=== PATIENT | female | born 1940 | race Caucasian/White ===

== ENCOUNTER 2016-09-02 10:30 | Observation (INO) | payer MEDICARE, MEDICAID ==
[~2016-09-02] VITALS: Ht 160 cm; Wt 58.2 kg
[2016-09-02] MEDS ORDERED: SODIUM CHLORIDE 0.9% 1,000 ML IV SCH (13:10)
[2016-09-02 13:38] VITALS: BP 171/84
[2016-09-02] MEDS ORDERED: PLEASE ENTER HEIGHT AND WEIGHT MC SCH (14:00)
[2016-09-02] MEDS ORDERED: POTA10TA90 PO (14:19)
[2016-09-02] MEDS ORDERED: ATOR10TA9 PO (14:19)
[2016-09-02] MEDS ORDERED: CITA20TA5 PO (14:19)
[2016-09-02] MEDS ORDERED: OMEP-110 PO (14:19)
[2016-09-02] MEDS ORDERED: ENAL5TAB PO (14:19)
[2016-09-02] MEDS ORDERED: METF500T4 PO (14:19)
[2016-09-02] MEDS ORDERED: ASPI-621 PO (14:19)
[2016-09-02] MEDS ORDERED: APIX5TAB PO (14:19)
[2016-09-02 14:27] LABS: BLOOD UREA NITROGEN 23 mg/dL (7-18)
[2016-09-02] MEDS ORDERED: CEFAZOLIN 1,000 MG ONE (14:56)
[2016-09-02] MEDS ORDERED: MIDAZOLAM 1 MG/ML, 5ML ONE (14:56)
[2016-09-02] MEDS ORDERED: LIDOCAINE 2%, 20ML ONE (14:56)
[2016-09-02] MEDS ORDERED: FENTANYL PF 100 MCG/2ML ONE (14:56)
[2016-09-02] MEDS ORDERED: CEFAZOLIN PMX 1GM/50ML 50 ML ONE (14:56)
[2016-09-02] MEDS ORDERED: CEFAZOLIN PMX 1GM/50ML 50 ML IVPB ONE (15:00)
[2016-09-02] MEDS ORDERED: ZOLPIDEM 5MG TABLET PO PRN (16:30)
[2016-09-02] MEDS ORDERED: ACETAMINOPHEN 325 MG TABLET PO PRN (16:30)
[2016-09-02] MEDS: metFORMIN 500 MG TABLET PO SCH (20:13)
[2016-09-02 20:39] VITALS: BP 120/70
[2016-09-02] MEDS: CEFAZOLIN PMX 1GM/50ML 50 ML IVPB SCH (20:53)
[2016-09-02] MEDS: SODIUM CHLORIDE FLUSH 10ML SYR IVF SCH (20:54)
[2016-09-02] MEDS: APIXABAN 5 MG TABLET PO SCH (20:54)
[2016-09-02] MEDS ORDERED: ATORVASTATIN 10 MG TABLET PO SCH (21:00)
[2016-09-03 01:35] VITALS: BP 148/88
[2016-09-03 07:36] VITALS: BP 155/76
[2016-09-03] MEDS: metFORMIN 500 MG TABLET PO SCH (08:44)
[2016-09-03] MEDS: APIXABAN 5 MG TABLET PO SCH (08:44)
[2016-09-03] MEDS: CEFAZOLIN PMX 1GM/50ML 50 ML IVPB SCH (08:44)
[2016-09-03] MEDS: SODIUM CHLORIDE FLUSH 10ML SYR IVF SCH (08:45)
[2016-09-03] MEDS ORDERED: ENALAPRIL 5MG TABLET PO SCH (09:00)
[2016-09-03] MEDS ORDERED: ASPIRIN 81 MG TABLET EC PO SCH (09:00)
[2016-09-03] MEDS ORDERED: POTASSIUM CHLORIDE 10 MEQ TABLET.ER PO SCH (09:00)
[2016-09-03] MEDS ORDERED: OMEPRAZOLE 20 MG CAPSULE.DR PO SCH (09:00)
[2016-09-03] MEDS ORDERED: CITALOPRAM 20 MG TABLET PO SCH (09:00)
== END 2016-09-03 11:29 | disposition home or self-care (01) ==
LOC: CACL 10:30 → ORIP 16:27 → 5SO 16:56
PROVIDERS: ADMIT Internal Medicine Cardiovascular Disease; ATTEND Internal Medicine Cardiovascular Disease
DX: I49.5 Sick sinus syndrome (principal); I44.1 Atrioventricular block, second degree; I48.91 Unspecified atrial fibrillation; R42 Dizziness and giddiness; R53.83 Other fatigue; E78.5 Hyperlipidemia, unspecified; I10 Essential (primary) hypertension; Z98.61 Coronary angioplasty status; E11.9 Type 2 diabetes mellitus without complications
CPT/HCPCS: 33208; 36415; 71010; 80048; 82962; 85025; 85610; 93005; 96365; 96375; 99156; 99157; C1779; C1785; C1892; G0378; J0690; J2250; J3010; J3490

== ENCOUNTER → 2016-11-10 | Outpatient (CLI) | payer MEDICARE, MEDICAID ==
[~2016-11-10] MED LIST: APIX5TAB PO; ASPI-621 PO; ATOR10TA9 PO; CITA20TA5 PO; ENAL5TAB PO; METF500T4 PO; OMEP-110 PO; POTA10TA6 PO
== END | disposition home or self-care (01) ==
LOC: CFH 11:35
PROVIDERS: ATTEND Internal Medicine
DX: J47.9 Bronchiectasis, uncomplicated (principal); R91.1 Solitary pulmonary nodule; I51.7 Cardiomegaly; K86.9 Disease of pancreas, unspecified; I25.10 Atherosclerotic heart disease of native coronary artery without angina pectoris; Z95.0 Presence of cardiac pacemaker
CPT/HCPCS: 71250

== ENCOUNTER → 2017-08-02 | Outpatient (CLI) | payer MEDICARE, MEDICAID ==
[2017-08-02 16:11] LABS: ALBUMIN 3.9 g/dL (3.4-5.0)
[2017-08-02 16:16] LABS: BILIRUBIN, DIRECT 0.2 mg/dL (0.1-0.2); BILIRUBIN,INDIRECT 0.6 mg/dL (0.0-2.0); BILIRUBIN,TOTAL 0.8 mg/dL (0.2-1.0); CHOL/HDL RATIO 1.4; LDL/HDL RATIO 0.3 (0.5-3.0); TOTAL PROTEIN 6.7 g/dL (6.4-8.2)
== END | disposition home or self-care (01) ==
LOC: CFH 11:34
PROVIDERS: ATTEND Internal Medicine Cardiovascular Disease
DX: E78.5 Hyperlipidemia, unspecified (principal)
CPT/HCPCS: 36415; 80061; 80076

== ENCOUNTER → 2017-09-06 | Outpatient (CLI) | payer MEDICARE, MEDICAID ==
[~2017-09-06] MED LIST changes: -CITA20TA5 PO; +CITA20TA6 PO; -METF500T4 PO; +METF500T5 PO; +REGADENOSON 0.4 MG/5 ML SYRINGE ONE
== END | disposition home or self-care (01) ==
LOC: CFH 12:04
PROVIDERS: ATTEND Internal Medicine Cardiovascular Disease
DX: I21.09 ST elevation (STEMI) myocardial infarction involving other coronary artery of anterior wall (principal); I21.19 ST elevation (STEMI) myocardial infarction involving other coronary artery of inferior wall; I25.10 Atherosclerotic heart disease of native coronary artery without angina pectoris; I44.0 Atrioventricular block, first degree
CPT/HCPCS: 78452; 93017; A9502; J2785

== ENCOUNTER 2018-09-24 12:22 | Outpatient (CLI) | payer MEDICARE, MEDICAID ==
[~2018-09-24 12:22] MED LIST changes: -ASPI-621 PO; +ASPI81TA45 PO; +METF500T17 PO; -METF500T5 PO
== END 2018-09-24 23:59 | disposition home or self-care (01) ==
LOC: CFH 12:22
PROVIDERS: ATTEND Internal Medicine Cardiovascular Disease
DX: I35.1 Nonrheumatic aortic (valve) insufficiency (principal); E78.5 Hyperlipidemia, unspecified; I10 Essential (primary) hypertension; E11.9 Type 2 diabetes mellitus without complications
CPT/HCPCS: 78452; 93017; 93306; A9502; J2785

== ENCOUNTER 2019-01-23 15:20 | Outpatient (CLI) | payer MEDICARE, MEDICAID ==
[~2019-01-23 15:20] MED LIST changes: +ASPI-650 PO; -REGADENOSON 0.4 MG/5 ML SYRINGE ONE; +UMEC1DIS INH
== END 2019-01-23 23:59 | disposition home or self-care (01) ==
LOC: RAD 15:20
PROVIDERS: ATTEND Registered Nurse
DX: J43.9 Emphysema, unspecified (principal); M85.88 Other specified disorders of bone density and structure, other site; M47.814 Spondylosis without myelopathy or radiculopathy, thoracic region; M48.54XA Collapsed vertebra, not elsewhere classified, thoracic region, initial encounter for fracture; X58.XXXA Exposure to other specified factors, initial encounter; Y93.89 Activity, other specified; Y92.89 Other specified places as the place of occurrence of the external cause; Y99.8 Other external cause status
CPT/HCPCS: 71046